=== PATIENT | male | born 1940 | race Caucasian/White ===

== ENCOUNTER 2017-02-25 17:22 | Emergency (ER) | payer MEDICARE ==
[~2017-02-25] VITALS: Ht 182.9 cm; Wt 79.4 kg
[2017-02-25] MEDS ORDERED: LIDOCAINE 1% HCL (LOCAL ANESTH.) INJ 20ML MDV ONE (19:51)
[2017-02-25] MEDS ORDERED: cefTRIAXone SOD 1,000 MG VL ONE (19:51)
[2017-02-25] MEDS ORDERED: cefTRIAXone W LIDOCAINE 1 GM IM IM ONE (20:00)
[2017-02-25 20:24] VITALS: BP 112/62
== END 2017-02-25 20:48 | disposition home or self-care (01) ==
LOC: ER 17:28
DX: L03.114 Cellulitis of left upper limb (principal); E11.9 Type 2 diabetes mellitus without complications; I10 Essential (primary) hypertension
CPT/HCPCS: 73100; 73120; 96372; 99284; J0696; J2001